=== PATIENT | male | born 1970 | race Caucasian/White ===

== ENCOUNTER 2022-10-03 07:25 | Day surgery (SDC) | payer OTHER ==
[2022-10-02 15:04] VITALS: BP 137/84
[~2022-10-03] VITALS: Ht 188 cm; Wt 91.8 kg
[2022-10-03 07:48] VITALS: BP 122/76
--- NOTE | 2022-10-03 11:45 | NUR ---
10/03/22 1145 Mikayla Montaño 1140-PATIENT ARRIVED TO PACU ON 6L MASK RR EVEN ORAL AIRWAY IN PLACE RN DOING JAW THRUST TO MAINTAIN OPEN AIRWAY. SR. IVF INFUSING. DRESSING TO RIGHT GROIN CDI. HOB ELEVATED
[2022-10-03] MEDS ORDERED: OXYCODON-ACETA1 EAC2 PO (11:53)
[2022-10-03] MEDS ORDERED: IBUPROFEN600 MG PO (11:53)
[2022-10-03] MEDS ORDERED: ACETAMINOPHEN500 MG PO (11:53)
[2022-10-03 12:30] VITALS: BP 117/84
--- NOTE | 2022-10-03 12:37 | NUR ---
1230: PT ARRIVES BACK TO DS RM 2 FROM VIA STRETCHER FROM PACU DROWSY. PT AROUSES WITH VERBAL STIMULATION AND DENIES PAIN OR NAUSEA. PT SIG OTHER AT BEDSIDE ON ARRIVAL, DC CRITERIA EXPLAINED TO PT. PT HOB TO 90 DEGRESS AND PROVIDED ICED WATER. CALL LIGHT WITHIN REACH.
[2022-10-03 13:26] VITALS: BP 131/79
--- NOTE | 2022-10-03 13:35 | NUR ---
1326: PT RESTING IN BED AWAKE AND ALERT WITH SIG OTHER AT BEDSIDE. PT RATES PAIN 2/10 IN RIGHT GROIN. ICED WATER REFILLED AND PROVIDED PUDDING. PT ENCOURAGED TO USE CALL LIGHT WITH URGE TO VOID AND/OR ANY NEEDS.
--- NOTE | 2022-10-03 13:56 | NUR ---
1348: PT USES CALL LIGHT TO NOTIFY RN OF URGE TO VOID. PT SITS AT SIDE OF BED AND DANGLES LEGS PRIOR TO STANDING. PT STATES SOME DIZZINESS WHEN STANDING BUT WOULD LIKE TO AMBULATE TO BATHROOM VS USING URINAL. PT HAS SLOW STEADY GAIT USING HANDRAIL ON WALL WITH RN AND SIG OTHER ASSIST. PT ABLE TO VOID QS WITH NO PROBLEMS. PT AMBULATES BACK TO DS RM 2 WITH RN ASSIST, STATES DIZZINESS HAS SUBSIDED. LUNCH ORDERED FOR PT IN ANTICIPATION OF PAIN MEDICATION.
[2022-10-03 14:31] VITALS: BP 137/83
--- NOTE | 2022-10-03 14:44 | NUR ---
[id number]: PT TOLERATES LUNCH WITH NO NAUSEA, PAIN MEDS ADMINISTERED TO ENSURE PT CAN TOLERATE PAIN MEDICATION BEING SENT HOME WITH. [id number]: PT UP TO BATHROOM WITH STEADY GAIT AND SIG OTHER ASSIST, ABLE TO VOID QS. BACK TO DS RM 2 AND WOULD LIKE TO GET DRESSED.
--- NOTE | 2022-10-03 15:27 | NUR ---
[id number]: PT TOLERATES PAIN MEDICATION AND DC INSTRUCTIONS PRESENTED VERBALLY AND WRITTEN. PAIN PRESCRIPTION IN DC FOLDER, PT AWARE OF NEED TO TAKE TO PHARMACY TO HAVE FILLED. PT DC FROM DS RM 2 VIA WC TO SIG OTHER, BRANDEN WAITING AT HOSPITAL ENTRNACE IN PERSONAL VEHICLE TO HOME.
--- NOTE | 2022-10-04 09:47 | OR ---
[facility] [address], [place] [address] Signed DATE OF OPERATION: 10/03/2022 SURGEON: Cherri Barnes MD PREOPERATIVE DIAGNOSIS: Right inguinal hernia. POSTOPERATIVE DIAGNOSES: 1. Right indirect inguinal hernia. 2. Cord lipoma. PROCEDURES: 1. Repair of right inguinal hernia with high ligation and excision of indirect sac and implantation of Prolene mesh (underlay technique). 2. Excision of cord lipoma. ANESTHESIA: General endotracheal, Ida Alex, ANTHROPOLOGY PROFESSOR and local 10 mL of 0.25% Marcaine with epinephrine. INDICATIONS FOR THE PROCEDURE: This 52-year-old white man is a patient of Yuli Rai PA-C and referred for a right inguinal hernia. He does have increasing pain noted in the right lower abdomen including the groin area. He has had no urinary outlet obstructive symptoms, chronic cough, or constipation. He does have a hernia noted clinically. Testicles are normal. He is admitted at this time to undergo repair of the hernia. He understands the risk of bleeding, infection, recurrence, and other unforeseen complications. FINDINGS: A cord lipoma was noted in addition to the indirect hernia sac of the cord. Indirect hernia had no sliding component or incarcerated viscus. High ligation of the sac and repair of the floor with implantation of Prolene mesh was undertaken. Cord structures were preserved. DESCRIPTION OF PROCEDURE: The patient was brought to the operating room again, given a general LMA type anesthetic. This was converted to an endotracheal anesthetic as the patient had some tremulousness and other movements that necessitated a more definitive approach. Preoperative antibiotic Ancef was given. Sequential compression device stockings used. The abdomen was prepared with a chlorhexidine solution and draped sterilely. An Electronically Signed By: CHERRI BARNES MD 10/04/22 0947 PATIENT NAME: JAYANT WILL OPERATIVE REPORT DATE OF : 72 REPORT #: [id number] PHYSICIAN: CHERRI BARNES MD PCP: Dean RAI REPORT IS CONFIDENTIAL AND NOT TO BE RELEASED WITHOUT AUTHORIZATION [facility] [address], [place] [address] Signed incision was made cephalad to the pubic tubercle on the right side. Dissection carried through the subcutaneous tissue with electrocautery. The external oblique was incised along its fibers revealing the underlying cord structures. ilioinguinal nerve identified. The cord was dissected free from the floor and encircled with a Katelynn drain. Further dissection in the floor revealed attenuated fascia of the transversalis. The bulky cord was dissected free ultimately identifying an indirect hernia sac. This was freed from the cord structures completely ultimately opened and inspected internally, showing no sign of sliding component or incarcerated viscus. The neck of the hernia sac was oversewn with 2-0 silk suture doubly applied and redundant hernia sac amputated and passed for Pathology. An Allis was applied to the tendon of the transversus abdominis. A segment of Prolene mesh was cut to an elliptical configuration and secured in an underlay technique with interrupted 2-0 Prolene suture. The tails of the graft were carried laterally around the cord and secured laterally also. Care was taken to avoid excessive tightness on the cord structures. Care was taken to avoid incorporation of any regional nerves. A 10 mL of 0.25% Marcaine with epinephrine was injected locally. The cord was replaced into the canal after hemostasis was assured. The external oblique was reapproximated with running 2-0 Vicryl suture. Guicho layer was reapproximated with interrupted 2-0 Vicryl and skin closed with running subcuticular 3-0 Vicryl. Steri-Strips were applied as was an Acticoat dressing. The patient was ultimately extubated and transferred to the recovery room in good condition, having suffered no complications. Sponge, needle, and instrument counts reported as correct x3. MD SARAH BETH Barrios/MARYLINL /[id number] cc: ELAINA Sun Copies: ~ Electronically Signed By: CHERRI BARNES MD 10/04/22 0947 PATIENT NAME: JAYANT WILL OPERATIVE REPORT DATE OF : 72 REPORT #: [id number] PHYSICIAN: CHERRI BARNES MD PCP: Dean RAI REPORT IS CONFIDENTIAL AND NOT TO BE RELEASED WITHOUT AUTHORIZATION
--- NOTE | 2022-10-05 14:48 | PATH ---
[facility] [address] [place] [address] Signed SPECIMEN(S): A RIGHT INGUINAL HERNIA SAC SPECIMEN(S): B LIPOMA OF SPERMATIC CORD SPECIMEN SOURCE: A. RIGHT INGUINAL HERNIA SAC B. LIPOMA OF SPERMATIC CORD CLINICAL HISTORY: Right inguinal hernia. FINAL PATHOLOGIC DIAGNOSIS: A. Right inguinal hernia sac: - Fragment of benign membranous fibrovascular and adipose tissue consistent with clinical hernia sac. - Negative for atypical features. B. Lipoma of spermatic cord: - Hyndman lobulated adipose tissue consistent with lipoma. JVR:[facility]:C2NR MICROSCOPIC EXAMINATION: Histologic sections of all submitted blocks are examined by light microscopy. These findings, together with the gross examination, support the pathologic diagnosis. GROSS DESCRIPTION: A. The specimen, labeled and designated "Hams, A" and designated on the requisition "right inguinal hernia sac," is received in formalin and consists of the portions of donohue-pink soft membranous tissue (4.3 x 3.0 x 1.1 cm). The tissue is sectioned to reveal donohue-pink yellow-donohue soft cut surfaces. Transport Manager sections are submitted in cassette A1. B. The specimen, labeled and designated "Hams, B" and designated on the requisition "lipoma of spermatic cord," is received in formalin and consists of a portion of yellow-donohue lobulated fatty tissue (6.7 x 2.0 x 0.8 cm). The specimen is inked blue and serially sectioned to reveal yellow-donohue lobulated fatty cut surfaces. Transport Manager sections are submitted in cassette B1. AC (under the direct supervision of a pathologist) The Gross Description was prepared using a voice recognition system. The report was reviewed for accuracy; however, sound-alike word errors, addition and/or deletions may occur. If there is any PATIENT NAME: JAYANT WILL PATHOLOGY DATE OF : 72 REPORT #: [id number] PHYSICIAN: MASHA KINGSTON PCP: Dean BUCK REPORT IS CONFIDENTIAL AND NOT TO BE RELEASED WITHOUT AUTHORIZATION [facility] [address], [place] [address] Signed question about this report, please contact Client Services. PERFORMING LABORATORY: Technical component was performed by [facility], [address] [place] [address] (CLIA# [id number]). Professional interpretation was performed by [facility], [address] [place] [id number] (CLIA#: [id number]). Diagnostician: Jasper Alvarado MD Pathologist Electronically Signed 10/05/2022 Copies: ~ PATIENT NAME: JAYANT WILL PATHOLOGY DATE OF : 72 REPORT #: [id number] PHYSICIAN: MASHA KINGSTON PCP: Dean BUCK REPORT IS CONFIDENTIAL AND NOT TO BE RELEASED WITHOUT AUTHORIZATION
== END 2022-10-03 15:05 | disposition home or self-care (01) ==
LOC: DS 07:25
PROVIDERS: ATTEND Surgery
PROC: 0YU50JZ Supplement Right Inguinal Region with Synthetic Substitute, Open Approach (ICD-10-PCS; principal; 2022-10-03 09:45)
DX: K40.90 Unilateral inguinal hernia, without obstruction or gangrene, not specified as recurrent (principal); D17.6 Benign lipomatous neoplasm of spermatic cord
CPT/HCPCS: 00830; C1781; J0131; J0690; J1100; J1644; J1885; J2250; J2405; J2704; J3490; J7121

== ENCOUNTER 2023-01-22 11:51 | Day surgery (SDC) | payer OTHER ==
[~2023-01-22] VITALS: Ht 188 cm; Wt 90.9 kg
[~2023-01-22 11:51] MED LIST: ACETAMINOPHEN500 MG PO; IBUPROFEN600 MG PO; OXYCODON-ACETA1 EAC2 PO
[2023-01-22 12:11] VITALS: BP 135/79
--- NOTE | 2023-01-22 13:52 | NUR ---
01/22/23 1359 Olamide Marsh PT TO PACU AWAKE AND ALERT DENIES PAIN AND NAUSEA.
[2023-01-22 14:02] VITALS: BP 115/83
--- NOTE | 2023-01-23 19:06 | OR ---
[facility] [address] [place], [place] [address] Signed DATE OF OPERATION: 01/22/2023 SURGEON: Cherri Barnes MD PREOPERATIVE DIAGNOSIS: Colon screening. POSTOPERATIVE DIAGNOSIS: Normal colon to cecum. PROCEDURE: Total colonoscopy to cecum. ANESTHESIA: Intravenous sedation, fentanyl 150 mcg and Versed 7 mg. INDICATION: This 53-year-old white man is a patient of Yuli Rai PA-C and was referred for right inguinal hernia and underwent hernia repair on October 03, 2022. He had no problems following operation. He has never had a colonoscopy in the past and was offered a screening colonoscopy. He has no symptoms of bleeding, diarrhea or constipation and no family history of colon cancer. He understands the risk of colonoscopy including but not limited to bleeding, infection, and perforation and wished to proceed. FINDINGS: The prep was excellent. Complete colonoscopy was undertaken of the cecum without question. Good intubation of the cecum was noted with normal ileum or ileocecal valve and normal appendiceal orifice. The remaining colon was normal. DESCRIPTION OF PROCEDURE: The patient was brought to the endoscopy suite and placed in the lateral decubitus position, given intravenous sedation to the point of slurred speech and nystagmus with full cardiopulmonary monitoring. Digital rectal examination was normal including a normal prostate. An Olympus video colonoscope was passed in the rectum and manipulated throughout the colon ultimately intubating the cecum itself. The ileocecal valve and appendiceal orifice were normal. The scope was withdrawn from that point and examination undertaken showed no sign of polyps, diverticular formation, colitis, or cancer. Retroflexed view of the rectum was normal as well. The scope was removed and the patient was taken to the recovery room in good condition. Electronically Signed By: CHERRI BARNES MD 01/23/23 1906 PATIENT NAME: JAYANT WILL OPERATIVE REPORT DATE OF : 72 REPORT #: [id number] PHYSICIAN: CHERRI BARNES MD PCP: Dean RAI REPORT IS CONFIDENTIAL AND NOT TO BE RELEASED WITHOUT AUTHORIZATION [facility] [address] [place], [place] [address] Signed CONCLUDING DIAGNOSIS: Normal colon. PLAN: Recommend repeat colonoscopy in 10 years, sooner if clinically indicated. He will return to the ongoing care of Yuli Rai PA-C. MD SARAH BETH Barrios/MARYLINL /[id number] cc: Yuli Rai PA-C Copies: ~ Electronically Signed By: CHERRI BARNES MD 01/23/23 1906 PATIENT NAME: JAYANT WILL OPERATIVE REPORT DATE OF : 72 REPORT #: [id number] PHYSICIAN: CHERRI BARNES MD PCP: Dean RAI REPORT IS CONFIDENTIAL AND NOT TO BE RELEASED WITHOUT AUTHORIZATION
== END 2023-01-22 14:10 | disposition home or self-care (01) ==
LOC: OPS 11:51 → DS 11:51 → OPS 13:00
PROVIDERS: ATTEND Surgery
PROC: 0DJD8ZZ Inspection of Lower Intestinal Tract, Via Natural or Artificial Opening Endoscopic (ICD-10-PCS; principal; 2023-01-22 13:00)
DX: Z12.11 Encounter for screening for malignant neoplasm of colon (principal); K40.90 Unilateral inguinal hernia, without obstruction or gangrene, not specified as recurrent
CPT/HCPCS: 99153; G0500; J2250; J3010; J7121